=== PATIENT | male | born 1945 | race Caucasian/White ===

== ENCOUNTER 2019-02-25 09:24 | Outpatient (CLI) | payer MEDICARE ==
[2019-02-25 10:38] LABS: Hemoglobin 14.4 g/dL (14.0-18.0); Mean Corpuscular HGB CONC 33.8 g/dL (32.0-36.0); Mean Corpuscular Hemoglobin 31.4 pg (27.0-31.0); Mean Corpuscular Volume 92.8 fL (78.0-98.0); Mean Platelet Volume 8.1 fL (7.4-10.4); Platelet Count 294 thou/uL (130-400); RBC Distribution Width 11.1 % (11.5-14.5); White Blood Cell (WBC) Count 7.9 thou/uL (4.8-10.8)
[2019-02-25 10:42] LABS: Bacteria/HPF None Seen HPF (None Seen); Bilirubin Negative (Negative); Blood, Urine Negative (Negative); Clarity Clear (Clear); Glucose, Urine (Dipstick) Normal (Negative); Leukocyte 25 Leu/uL (Negative); Nitrite Negative (Negative); Protein, Urine (Dipstick) Negative (Neg-Trace); RBC/HPF 0-3 HPF (0-3); Squamous Epithelial 0-3 HPF (0-3); Urobilinogen Normal mg/dL (Less than 2); WBC/HPF 0-3 HPF (0-3)
[2019-02-25 10:45] LABS: INR-International Normal Ratio 0.9; PTT 26.4 SEC (22.9-36.1); Prothrombin Time 12.5 SEC (12.0-14.7)
[2019-02-25 10:50] LABS: Anion Gap 12 mmol/L (10-20); BUN (Urea Nitrogen) 29 mg/dL (8.4-25.7); Calc. Creatinine Clearance 0 mL/min (70-130); Calcium 9.9 mg/dL (7.8-10.44); Carbon Dioxide 27 mmol/L (23-31); Chloride 100 mmol/L (98-107); Estimated GFR-MDRD 67; Glucose 114 mg/dL (83-110); Potassium 4.4 mmol/L (3.5-5.1); Sodium 135 mmol/L (136-145)
== END 2019-02-25 09:25 | disposition home or self-care (01) ==
LOC: LABBT 09:24
PROVIDERS: ATTEND Urology
DX: Z01.818 Encounter for other preprocedural examination (principal); N43.40 Spermatocele of epididymis, unspecified; N40.1 Benign prostatic hyperplasia with lower urinary tract symptoms
CPT/HCPCS: 80048; 81001; 85027; 85610; 85730; 87086; 93005; 93010

== ENCOUNTER 2019-03-04 07:03 | Day surgery (SDC) | payer MEDICARE ==
[2019-03-04] MEDS ORDERED: Levofloxacin 500 mg/D5W 100 ml Premix Bag ONE (08:06)
[2019-03-04] MEDS ORDERED: Bupivacaine 0.25% HCL 30 ML VIAL ONE (09:43)
[2019-03-04] MEDS ORDERED: Bacitracin Zinc Ointment 30 gm TUBE ONE (09:52)
[2019-03-04] MEDS ORDERED: Fentanyl 100 MCG/2 ML VIAL ONE (12:32)
[2019-03-04] MEDS ORDERED: ePHEDrine/0.9% NaCl/PF SYRINGE 50 mg/10 ml ONE (14:30)
[2019-03-04] MEDS ORDERED: Dexamethasone 20 MG/5 ML VIAL ONE (14:30)
[2019-03-04] MEDS ORDERED: Ketorolac Tromethamine 30 MG/ML VIAL ONE (14:30)
[2019-03-04] MEDS ORDERED: PROPOFOL 200 MG/20 ML VIAL ONE (14:30)
--- NOTE | 2019-03-04 14:48 | OP ---
DATE OF PROCEDURE: 03/04/2019 PREOPERATIVE DIAGNOSES: Enlarged prostate with lower urinary tract symptoms and left spermatocele. POSTOPERATIVE DIAGNOSES: Enlarged prostate with lower urinary tract symptoms and left spermatocele. PROCEDURES PERFORMED: Bipolar transurethral resection of the prostate and left spermatocelectomy. ANESTHESIA: General. COMPLICATIONS: None. DRAINS: 22-Namibian 3-way Leon catheter, scrotal Sierra drain. SPECIMENS: Prostate chips. DESCRIPTION OF PROCEDURE: After informed consent, the patient was taken to the operating room, transferred to the table under his own power. Anesthesia was established. A time-out was performed showing the correct patient, site, and procedure. Preoperative antibiotics were administered. He was prepped and draped in the supine position. I infiltrated the left hemiscrotum with 0.25% Marcaine. A transverse incision was made and carried down through dartos with electrocautery. The testicle and spermatocele were delivered through this. I was able to carefully dissect the spermatocele using a combination of electrocautery and sharp dissection. Care was taken to avoid injury to the spermatic cord. Once the majority of the spermatocele was dissected free, the cyst was opened, drained, and removed in its entirety. Meticulous hemostasis was achieved. The left hemiscrotum was irrigated with saline. The testicle was then delivered back into the scrotum, and a Sierra drain placed through the dependent portion of the scrotum. The drain was sutured in place with Vicryl suture. The dartos was closed with Vicryl and then skin closed with chromic. The patient was then re-prepped and draped in the lithotomy position. A repeat time-out was performed. The rigid resectoscope was advanced through the urethra after dilating to 30-Namibian with [place] sounds. The scope was passed onto the prostatic urethra noting large coapting lateral lobes and a large median lobe. The bladder was entered noting [id number] trabeculation without diverticula or mucosal abnormalities. Both ureteral orifices were normal in appearance. The resection loop was used to take down the median lobe from the bladder neck back to the verumontanum. The patient's left lobe was then treated, followed by the right lobe. Finally, a small amount of anterior obstructing tissue was removed. Meticulous hemostasis was achieved. Prostate chips were removed with the Kinjal evacuator. The bladder was then reexamined noting no remaining prostate chips. The ureteral orifices were uninvolved with resection. No active bleeding was noted. The scope was then withdrawn and a 22-Namibian 3-way Leon catheter placed with 40 mL instilled in the balloon. This was connected to continuous irrigation, which was running clear at the end of the case. This was then connected to bag drainage. The scrotal incision was dressed with antibiotic ointment and gauze, which was held in place with a scrotal support. He was then awoken from anesthesia, transferred back to his hospital bed, and taken to PACU in stable condition, where he will be admitted overnight for CBI. Job ID: [id number]
[2019-03-04] MEDS ORDERED: HYDROcodone/Acetaminophen 5/325 mg Tablet PO PRN (15:30)
[2019-03-04] MEDS ORDERED: Zolpidem Tartrate 5 MG TAB PO PRN (15:30)
[2019-03-04] MEDS ORDERED: Oxybutynin 5 MG TAB PO PRN (15:30)
[2019-03-04] MEDS ORDERED: diphenhydrAMINE 50 MG/ML VIAL IVP PRN (15:30)
[2019-03-04] MEDS ORDERED: Ondansetron PF 4 MG/2 ML Vial IVP PRN (15:30)
[2019-03-04] MEDS ORDERED: Aspirin 81 mg Enteric Coated Tablet PO SCH (16:00)
[2019-03-04] MEDS ORDERED: metFORMIN 500 MG TAB PO SCH (16:00)
[2019-03-04] MEDS: Sodium Chloride 0.9% 1,000 ML IV SCH ×2 (16:20→18:19)
[2019-03-04 16:29] VITALS: BMI 32.3
[2019-03-04] MEDS: Ketorolac Tromethamine 30 MG/ML VIAL IVP SCH (18:19)
[2019-03-04] MEDS: Docusate 100 MG CAP PO SCH (20:30)
[2019-03-04] MEDS ORDERED: Pramipexole Di-HCl 1 MG TAB PO SCH (21:00)
[2019-03-05] MEDS: Ketorolac Tromethamine 30 MG/ML VIAL IVP SCH ×3 (00:25→13:03)
[2019-03-05 00:33] VITALS: TEMP 97.8
[2019-03-05] MEDS ORDERED: Ketorolac Tromethamine 30 MG/ML VIAL ONE (05:15)
[2019-03-05] MEDS ORDERED: metFORMIN 500 MG TAB PO SCH (08:00)
[2019-03-05] MEDS: Docusate 100 MG CAP PO SCH (08:43)
[2019-03-05] MEDS ORDERED: Aspirin 81 mg Enteric Coated Tablet PO SCH (09:00)
[2019-03-05 12:41] VITALS: BP 119/68
== END 2019-03-05 12:45 | disposition home or self-care (01) ==
LOC: SDC 07:03 → SJJU 07:35 → SDC 03-05 12:45
PROVIDERS: ATTEND Urology
PROC: 0VT08ZZ Resection of Prostate, Via Natural or Artificial Opening Endoscopic (ICD-10-PCS; principal; 2019-03-04)
PROC: 0VBK0ZZ Excision of Left Epididymis, Open Approach (ICD-10-PCS; 2019-03-04)
DX: N40.1 Benign prostatic hyperplasia with lower urinary tract symptoms (principal); N13.8 Other obstructive and reflux uropathy; N43.41 Spermatocele of epididymis, single; I10 Essential (primary) hypertension; E11.9 Type 2 diabetes mellitus without complications; G25.81 Restless legs syndrome; E78.5 Hyperlipidemia, unspecified; K52.89 Other specified noninfective gastroenteritis and colitis; Z79.82 Long term (current) use of aspirin; Z79.84 Long term (current) use of oral hypoglycemic drugs; Z79.899 Other long term (current) drug therapy; Z87.891 Personal history of nicotine dependence
CPT/HCPCS: 88305; J1100; J1885; J1956; J2704; J3010; S0020

== ENCOUNTER 2020-02-04 13:17 | Outpatient (CLI) | payer MEDICARE | END 2020-02-04 13:18 | disposition home or self-care (01) | LOC: DTY/OP 13:17 | PROVIDERS: ATTEND Internal Medicine | DX: E11.9 Type 2 diabetes mellitus without complications (principal); K76.0 Fatty (change of) liver, not elsewhere classified; Z71.3 Dietary counseling and surveillance | CPT/HCPCS: 97802 ==

== ENCOUNTER 2021-08-18 12:04 | Outpatient (CLI) | payer MEDICARE | END 2021-08-18 12:05 | disposition home or self-care (01) | PROVIDERS: ATTEND Nurse Practitioner Adult Health | DX: R07.89 Other chest pain (principal) | CPT/HCPCS: 93017 ==

== ENCOUNTER 2021-08-31 08:50 | Outpatient (CLI) | payer MEDICARE | END 2021-08-31 08:51 | disposition home or self-care (01) | LOC: NM 08:50 | PROVIDERS: ATTEND Nurse Practitioner Adult Health | DX: R07.89 Other chest pain (principal) | CPT/HCPCS: 78452; 93017; A9500 ==